=== PATIENT | male | born 1980 | race African-American/Black ===

== ENCOUNTER 2024-05-23 20:53 | Emergency (ER) | payer MEDICAID ==
[~2024-05-23] VITALS: Ht 175.3 cm; Wt 100.0 kg
[2024-05-23 21:00] VITALS: O2SAT 98
[2024-05-23] MEDS: FUROSEMIDE 40MG/4ML VIAL IVP ONE (21:32)
[2024-05-23] MEDS: ASPIRIN 325MG EC TABLET PO ONE (21:33)
[2024-05-23] MEDS: METHYLPREDNISOLONE SOD SUCC 125MG/2ML (ACT-O-VIAL) IV SCH (21:33)
[2024-05-24 02:30] LABS: BASOPHILS % 0.4 % (0.0-2.0); HEMOGLOBIN. 11.3 g/dL (14.0-18.0); MEAN CORPUSCULAR HEMOGLOBIN 27.9 pg (28.0-32.0); MEAN CORPUSCULAR HGB CONC 31.4 g/dL (31.0-37.0); MEAN CORPUSCULAR VOLUME 88.7 fL (80.0-94.0); MEAN PLATELET VOLUME 7.8 fl (7.4-10.4); MONOCYTES % 3.3 % (2.0-8.0); NEUTROPHILS % 85.3 % (40.0-76.0); PLATELET 221 x1000/uL (130-400); RED BLOOD CELL COUNT 4.06 mill/uL (4.7-6.1); RED CELL DISTRIBUTION WIDTH 17.7 % (11.6-14.6); WHITE BLOOD COUNT 2.9 x1000/uL (4.5-11.0)
[2024-05-24 02:41] LABS: TROPONIN I HIGH SENSITIVITY 60 ng/L (3.0-53)
[2024-05-24 03:03] LABS: CHLORIDE 105 mEq/L (98-107); POTASSIUM 3.4 mEq/L (3.5-5.1); SODIUM 138 mEq/L (136-145)
[2024-05-24 03:04] LABS: CALCIUM 8.7 mg/dL (8.7-10.4); CARBON DIOXIDE 24 mEq/L (21-32)
[2024-05-24 03:09] LABS: CREATININE 1.2 mg/dL (0.6-1.3); GLUCOSE 135 mg/dL (70-105); UREA NITROGEN BLOOD 16 mg/dL (9-23)
[2024-05-24 04:43] LABS: TROPONIN I HIGH SENSITIVITY 53 ng/L (3.0-53)
[2024-05-24 07:18] VITALS: TEMP 36.66960
[2024-05-24 09:00] VITALS: BP 125/91; PULSE 93; RESP 18; O2SAT 98
== END 2024-05-24 09:30 | disposition left against medical advice (07) ==
LOC: ER 20:53 → EDBEDREQ 22:59 → EDBEDREQTM 22:59 → ER 05-24 09:30
DX: J44.1 Chronic obstructive pulmonary disease with (acute) exacerbation (principal); I11.0 Hypertensive heart disease with heart failure; I50.9 Heart failure, unspecified; F17.200 Nicotine dependence, unspecified, uncomplicated
CPT/HCPCS: 36415; 71045; 93005; 96374; 96375; 99285; 80048; 83880; 85025; 84484; 96376; J1940; J2919 ×2; Z7610 ×2

== ENCOUNTER 2025-01-05 03:02 | Emergency (ER) | payer OTHER ==
[~2025-01-05] VITALS: Ht 182.9 cm; Wt 99.0 kg
[~2025-01-05 03:02] MED LIST: ALBU18HF2 IH; CARV3.1242 PO; FLUT1DIS3 INH; FURO-151 MT; LOSA25TA26 PO; P20 MT; POTA-205 MT
[2025-01-05 03:05] VITALS: O2SAT 98
[2025-01-05] MEDS ORDERED: FURO-151 MT (04:29)
[2025-01-05 06:24] VITALS: BP 113/77; PULSE 94; RESP 16; TEMP 37.1; O2SAT 100
== END 2025-01-05 06:26 | disposition home or self-care (01) ==
LOC: ER 03:02
DX: R06.02 Shortness of breath (principal); F17.210 Nicotine dependence, cigarettes, uncomplicated; I11.0 Hypertensive heart disease with heart failure; I50.9 Heart failure, unspecified; J44.9 Chronic obstructive pulmonary disease, unspecified; Z79.51 Long term (current) use of inhaled steroids; Z79.899 Other long term (current) drug therapy; Z91.148 Patient's other noncompliance with medication regimen for other reason
CPT/HCPCS: 71045; 99283

== ENCOUNTER 2025-02-23 03:43 | Inpatient (IN) | payer OTHER ==
[~2025-02-23] VITALS: Ht 188 cm; Wt 108.9 kg
[2025-02-23 04:37] LABS: BASOPHILS % 0.6 % (0.0-2.0); HEMATOCRIT. 33.8 % (42.0-52.0); HEMOGLOBIN. 10.5 g/dL (14.0-18.0); LYMPHOCYTES % 26.2 % (20.0-50.0); MEAN CORPUSCULAR HEMOGLOBIN 26.7 pg (28.0-32.0); MEAN CORPUSCULAR HGB CONC 31.2 g/dL (31.0-37.0); MEAN CORPUSCULAR VOLUME 85.5 fL (80.0-94.0); MONOCYTES % 14.6 % (2.0-8.0); NEUTROPHILS % 56.6 % (40.0-76.0); PLATELET 255 x1000/uL (130-400); RED BLOOD CELL COUNT 3.95 mill/uL (4.7-6.1); RED CELL DISTRIBUTION WIDTH 20.2 % (11.6-14.6); WHITE BLOOD COUNT 4.5 x1000/uL (4.5-11.0)
[2025-02-23 04:44] LABS: CHLORIDE 104 mEq/L (98-107); POTASSIUM 3.3 mEq/L (3.5-5.1); SODIUM 139 mEq/L (136-145)
[2025-02-23 04:45] LABS: CALCIUM 8.7 mg/dL (8.7-10.4); CARBON DIOXIDE 28 mEq/L (21-32)
[2025-02-23 04:50] LABS: CREATININE 1.5 mg/dL (0.6-1.3); GLUCOSE 97 mg/dL (70-105); UREA NITROGEN BLOOD 30 mg/dL (9-23)
[2025-02-23 05:02] LABS: TROPONIN I HIGH SENSITIVITY 59 ng/L (3.0-53)
[2025-02-23] MEDS: ALBUTEROL (0.083%) 2.5MG/3ML NEB HHN STA (05:25)
[2025-02-23 05:26] VITALS: PULSE 91; RESP 20; O2SAT 97
[2025-02-23] MEDS: IPRATROPIUM BROMIDE (0.02%) 0.5MG/2.5ML NEB HHN STA (05:26)
[2025-02-23 08:00] VITALS: BP 102/83; PULSE 73; RESP 18; TEMP 35.9; TEMP 36; O2SAT 100
[2025-02-23] MEDS ORDERED: ONDANSETRON HCL 4MG/2ML INJ IV PRN ×2 (09:00→13:00)
[2025-02-23] MEDS ORDERED: ACETAMINOPHEN 650MG/20.3ML UDC PO PRN (09:00)
[2025-02-23] MEDS ORDERED: IPRATROPIUM/ALBUTEROL 0.5-3(2.5)MG/3ML NEB HHN SCH (09:30)
[2025-02-23 12:00] VITALS: BP 154/58; PULSE 95; RESP 20; TEMP 36.3; O2SAT 100
[2025-02-23] MEDS ORDERED: EMPA10TA PO (12:58)
[2025-02-23] MEDS ORDERED: ASPI-1406 PO (12:58)
[2025-02-23] MEDS ORDERED: ATOR40TA70 PO (12:58)
[2025-02-23] MEDS ORDERED: APIX5TAB PO (12:58)
[2025-02-23] MEDS: POTASSIUM CHLORIDE 20MEQ TABLET SR PO SCH (13:41)
[2025-02-23] MEDS: ACETAMINOPHEN 325MG TABLET PO SCH (13:41)
[2025-02-23 14:00] LABS: CLARITY URINE CLEAR (CLEAR); COLOR URINE DARK YELLOW (YELLOW); GLUCOSE URINE NEGATIVE (NEGATIVE); KETONES URINE NEGATIVE (NEGATIVE); LEUKOCYTE ESTERASE URINE NEGATIVE (NEGATIVE); NITRITE URINE NEGATIVE (NEGATIVE); OCCULT BLOOD URINE NEGATIVE (NEGATIVE); PH URINE 5.5 (4.5-8.0); PROTEIN URINE TRACE (NEGATIVE); SPECIFIC GRAVITY URINE 1.018 (1.005-1.030)
[2025-02-23 14:30] LABS: BACTERIA URINE NONE SEEN; RBC URINE 0-2 /hpf (0-2); SQUAMOUS EPITHELIAL CELL URINE 1+ /lpf (RARE/1+); WBC URINE 0-2 /hpf (0-2); YEAST URINE NONE SEEN
[2025-02-23 14:34] LABS: *AMPHETAMINES SCREEN URINE NEGATIVE (NEGATIVE); *BARBITURATES SCREEN URINE NEGATIVE (NEGATIVE); *BENZODIAZEPINES SCREEN URINE NEGATIVE (NEGATIVE)
[2025-02-23 14:35] LABS: *COCAINE SCREEN URINE PRESUMPTIVE POSITIVE (NEGATIVE); CANNABINOID URINE SCREEN PRESUMPTIVE POSITIVE (NEGATIVE); ECSTASY MDMA SCREEN URINE NEGATIVE (NEGATIVE); METHADONE URINE SCREEN NEGATIVE (NEGATIVE); OPIATES URINE SCREEN NEGATIVE (NEGATIVE); PHENCYCLIDINE URINE SCREEN NEGATIVE (NEGATIVE)
[2025-02-23 15:30] VITALS: BP 154/58; PULSE 88; TEMP 97.4; O2SAT 99
[2025-02-23 15:36] LABS: T4 FREE 1.64 ng/dL (0.89-1.76); THYROID STIMULATING HORMONE 4.14 uIU/mL (0.55-4.78)
[2025-02-23 16:00] VITALS: BP 146/68; PULSE 96; RESP 20; TEMP 36.6; O2SAT 100
[2025-02-23] MEDS ORDERED: ATORVASTATIN CALCIUM 40MG TABLET PO SCH (21:00)
[2025-02-23] MEDS ORDERED: CARVEDILOL 3.125 MG TABLET PO SCH (21:00)
[2025-02-23] MEDS ORDERED: APIXABAN 5 MG TABLET PO SCH (21:00)
[2025-02-24] MEDS ORDERED: PANTOPRAZOLE SODIUM 40 MG/VIAL IV SCH (09:00)
[2025-02-24] MEDS ORDERED: EMPAGLIFLOZIN 10MG TABLET PO SCH (09:00)
[2025-02-24] MEDS ORDERED: LOSARTAN 25 MG TABLET PO SCH (09:00)
[2025-02-24] MEDS ORDERED: ASPIRIN 81MG EC TABLET PO SCH (09:00)
[2025-02-24] MEDS ORDERED: FUROSEMIDE 40MG/4ML VIAL IVP SCH (09:00)
== END 2025-02-23 16:15 | disposition short-term general hospital (02) | DRG 190 ==
LOC: ER 03:43 → 5WST 04:58 → EDBEDREQTM 05:07 → EDBEDREQ 05:07 → ENRESERV 05:24 → ER 05:43
PROVIDERS: ADMIT Internal Medicine; ATTEND Internal Medicine
DX: I21.4 Non-ST elevation (NSTEMI) myocardial infarction (principal); J96.01 Acute respiratory failure with hypoxia; I50.9 Heart failure, unspecified; I11.0 Hypertensive heart disease with heart failure; D64.9 Anemia, unspecified; E87.6 Hypokalemia; F17.210 Nicotine dependence, cigarettes, uncomplicated; I48.91 Unspecified atrial fibrillation; J44.9 Chronic obstructive pulmonary disease, unspecified; F12.90 Cannabis use, unspecified, uncomplicated; F10.90 Alcohol use, unspecified, uncomplicated; Y90.9 Presence of alcohol in blood, level not specified; Z59.00 Homelessness unspecified
CPT/HCPCS: 36415; 71045; 80048; 80061; 80305; 81003; 83036; 83880; 84439; 84443; 84484; 85025; 93005; 94070; 94640; 94664; 98960; 99291; A4606